=== PATIENT | female | born 1935 | race Caucasian/White ===

== ENCOUNTER 2017-09-13 10:17 | Inpatient (IN) | payer OTHER, MEDICARE ==
[~2017-09-13] VITALS: Ht 165.1 cm; Wt 54.4 kg
[~2017-09-13 10:17] MED LIST: CALTRATE 600 +1 EACH PO; CLONAZEPAM0.5 MG PO; CULTURELLE10 Billion PO; DEPAKOTE250 MG PO; FUROSEMIDE20 MG PO; LOVENOX40 MG/0.1 SC; MASON NATURAL1200 MG PO; METROGEL TOP; NADOLOL20 MG PO; OXYCODONE HCL5 M1 PO; PRILOSEC40 MG PO; REFRESH CLASSI1 EACH IO; RESTASIS 0.4 M0.4 ML OPH; SYNTHROID0.05 MG PO; TRICOR160 MG PO; TYLENOL325 M1 PO; VITAB121000 PO; VITAMIN D32000 I1 PO; ZADITOR 5 ML5 ML OPH; ZYRTEC ALLERGY10 MG PO
--- NOTE | 2017-09-13 10:31 | ED DYSPNEA/ASTHMA COMPLAINT ---
History of Present Illness General Chief Complaint: Dyspnea (COPD, CHF, Other) Stated Complaint: BIBA COUGH, FEVER X 2 WEEKS Source: patient, family Exam Limitations: language barrier Vital Signs & Intake/Output Vital Signs & Intake/Output Vital Signs Date Time Temp Pulse Resp B/P B/P Pulse O2 O2 Flow FiO2 Mean Ox Delivery Rate 09/13 1240 100.9 09/13 1233 97.4 88 18 163/72 99 Nasal 4.0L Cannula 09/13 1108 100.9 73 20 180/78 94 Nasal 3.0L Cannula 09/13 1031 92 Room Air 09/13 1031 77 18 136/61 92 Room Air Allergies Coded Allergies: codeine (VOMITING 07/10/16) Reconcile Medications Acetaminophen (Tylenol) 325 MG TABLET 650 MG PO Q6P PRN pain scale 1-3 Calcium Carbonate/Vitamin D3 (Caltrate 600 + D Tablet) 600 MG-800 TABLET 1 TAB PO DAILY SUPPLEMENT (Reported) CETIRIZINE HCL (Zyrtec) 10 MG CAPSULE 1 CAP PO DAILY ALLERGIES (Reported) Clonazepam 0.5 MG TABLET 1 TAB PO QHS SLEEP (Reported) Cyanocobalamin (Vitamin B-12) 1,000 MCG TABLET 1 TAB PO DAILY SUPPLEMENT ( Reported) Cyclosporine (Restasis 0.4 Ml) 0.05 % DROPERETTE 1 GTT OPH BID EYES (Reported ) Divalproex Sodium (Depakote) 250 MG TCP 1 TAB PO QHS MENTAL HEALTH (Reported) Enoxaparin Sodium (Lovenox) 40 MG/0.4 ML SYRINGE 40 MG SC DAILY dvt prophylaxis Fenofibrate (Tricor) 160 MG TAB 1 TAB PO QPM TRIGLYCERIDES (Reported) Furosemide 20 MG TABLET 1 TAB PO DAILY DIURETIC (Reported) Ketotifen Fumarate (Zaditor 5 Ml) 0.025 % (0.035 %) DROPS 1 GTT OPH PRN ALLERGIES-EYES (Reported) Lactobacillus Rhamnosus GG ([employer]) 15 BILLION CELL CAP.SPRINK 1 CAP PO DAILY PROBIOTIC (Reported) Levothyroxine Sodium (Synthroid) 0.05 MG TAB 0.05 MG PO DAILY AC THYROID ( Reported) Metronidazole (Metrogel 1% 60GM) 1 % GEL..GRAM. 1 PATI TOP PRN ROSACEA ( Reported) apply to affected area(s) Nadolol 20 MG TABLET 1 TAB PO DAILY BP (Reported) OMEGA-3 FATTY ACIDS/FISH OIL (Fish Oil 1,200 MG Softgel) 360 MG-1,200 MG CAPSULE 1 SGL PO QHS SUPPLEMENT (Reported) Omeprazole (Prilosec) 40 MG ECC 1 CAP PO DAILY AC GI (Reported) Oxycodone HCl 5 MG TABLET 5 MG PO Q6 PRN PAIN SCALE 4-6 (MODERATE) Polyvinyl Alcohol/Povidone/Pf (Refresh Classic Eye Drops) 1.4 %-0.6 % DROPERETTE 1 PATI IO DAILY PRN TEARS (Reported) Triage Nurses Notes Reviewed? yes Onset: Gradual Duration: constant Timing: recent history Severity: moderate HPI: Patient is a 82-year-old female who is primarily Faroese speaking only in which history is limited with a past medical history of hypertension and anxiety HYPERthyroidism bilateral leg edema arthritis who is brought in by ambulance for concerns of cough-[employer] 2 weeks. Patient has associated symptoms of chills shortness of breath headaches fever BODY, nasal congestion and discharge weakness Patient saw ENT and was given azithromycin patient is on her last day of medication and feels no better Patient does state approximate one month ago while having cerumen disimpaction by primary care doctor the provider did cut patient's right ear and since is noted intermittent bleeding since where patient has been using cotton ball in the right ear however she denies any pain complaining of intermittent 2 weeks of chest discomfort (Julio Cesar Arora) Past History Travel History Traveled to [place] past 21 day No Medical History Any Pertinent Medical History? 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 No (Julio Cesar Arora) Review of Systems Review of Systems Constitutional: Reports: see HPI, chills, fever, malaise, weakness. EENTM: Reports: see HPI, nasal congestion. Respiratory: Reports: see HPI, cough, short of breath. Cardiovascular: Reports: see HPI, chest pain. GI: Reports: see HPI. Genitourinary: Reports: no symptoms. Musculoskeletal: Reports: see HPI. Skin: Reports: no symptoms. Neurological/Psychological: Reports: see HPI, headache. Hematologic/Endocrine: Reports: no symptoms. Immunologic/Allergic: Reports: no symptoms. All Other Systems: Reviewed and Negative (Julio Cesar Arora) Physical Exam Physical Exam General Appearance: alert, comfortable, thin Head: atraumatic Eyes: Bilateral: normal appearance, PERRL, EOMI. Ears, Nose, Throat: normal pharynx, hearing grossly normal, nasal congestion Neck: normal inspection Respiratory: chest non-tender, no respiratory distress, crackles Cardiovascular: regular rate/rhythm Peripheral Pulses: 2+ radial (R) Gastrointestinal: normal bowel sounds, soft, non-tender Extremities: TRACE PITTING EDEMA Neurologic/Psych: no motor/sensory deficits, awake, alert, oriented x 3 Skin: intact, normal color, warm/dry Core Measures ACS in differential dx? Yes CVA/TIA Diagnosis No Sepsis Present: No Sepsis Focused Exam Completed? No (Julio Cesar Arora) Progress Differential Diagnosis: asthma, AMI, bronchitis, costochondritis, CHF, COPD, musculoskeletal pain, pericarditis, pulmonary embolism, pneumonia, pneumothorax, rib fracture, unstable angina Plan of Care: Orders Procedure Date/time Status Regular Diet 09/13 D Active Patient Data 09/13 1440 Active Patient Data 09/13 1434 Active Misc Message 09/13 1421 Active ED Holding Orders 09/13 1421 Active Admit to inpatient 09/13 1421 Active Vital Signs 09/13 1421 Active Code Status 09/13 1421 Active LACTIC ACID 09/13 1341 Active Add-on Test (ER Only) 09/13 1113 Active D-DIMER 09/13 1107 Complete DEPAKOTE LEVEL 09/13 1103 Complete B-TYPE NATRIURETIC PEP (BNP) 09/13 1103 Complete RAPID VIRAL INFLUENZA A 09/13 1041 Complete LOWER RESPIRATORY CULTURE 09/13 1041 Active BLOOD CULTURE 09/13 1041 Active TROPONIN LEVEL 09/13 1041 Complete LACTIC ACID 09/13 1041 Complete COMPREHENSIVE METABOLIC PANEL 09/13 1041 Complete CBC WITHOUT DIFFERENTIAL 09/13 1041 Complete EKG 09/13 1039 Active Current Medications Sig/Renee Start time Last Medication Dose Stop Time Status Admin Azithromycin 500 MG ONCE ONE 09/13 1415 AC (Zithromax) 09/13 1514 Sodium Chloride 250 ML (Normal Saline 0.9%) Laboratory Tests 09/13/17 1107: Ypj-P-Cknlscrwzxd Pept Cancelled 09/13/17 1103: Anion Gap 13, Estimated GFR > 60, BUN/Creatinine Ratio 18.6, Glucose 105 H, Lactic Acid 0.8, Calcium 9.2, Total Bilirubin 0.6, AST 49 H, ALT 35, Alkaline Phosphatase 108, Troponin I 0.02, Aqi-Z-Nkhozfydpfl Pept 630 H, Total Protein 7.2, Albumin 3.6, Globulin 3.6, Albumin/Globulin Ratio 1.0 L, D-Dimer High Sensitivty 518 H, CBC w Diff NO MAN DIFF REQ, RBC 4.26, MCV 84.9, MCH 28.3, RDW 14.8 H, MPV 7.5, Gran % 69.3, Lymphocytes % 21.0, Monocytes % 9.1, Eosinophils % 0.3, Basophils % 0.3, Absolute Granulocytes 8.2 H, Absolute Lymphocytes 2.5, Absolute Monocytes 1.1 H, Absolute Eosinophils 0, Absolute Basophils 0, PUBS MCHC 33.3, Valproic Acid 46.9 L Microbiology 09/13 1140 BLOOD: Blood Culture - RECD 09/13 1124 BLOOD: Blood Culture - RECD 09/13 1050 NASOPHARYN: Influenza Virus A & B Rapid Smear - COMP 09/13 1041 LOWER RESP: Respiratory Culture - ORD 09/13 1041 LOWER RESP: Gram Stain - ORD Initially patient was in no respiratory distress however does have crackles patient spiked a fever in the emergency room and has community acquired bilateral pneumonia patient will be admitted. Discussed admission with patient who agrees and has no questions Diagnostic Imaging: Viewed by Me: CT Scan. Radiology Impression: acute abnormality Initial ED EK BPM, RBBB Prior EKG: unchanged Comments: PATIENT: TAI ESTRADA PRESENT AGE: 82 PATIENT ACCOUNT NO: [id number] : 37 LOCATION: [facility] ORDERING PHYSICIAN: Julio Cesar DUARTE SERVICE DATE: 09/13/17-1202 EXAM TYPE: CAT - CTA CHEST-PULMONARY EMBOLISM EXAMINATION: CT ANGIOGRAM OF THE CHEST WITH AND WITHOUT CONTRAST (CT PULMONARY ANGIOGRAM FOR PE) CLINICAL INFORMATION: Chest pain. Shortness of breath. Elevated d-dimer. COMPARISON: Chest x-ray of 07/10/2016. Chest CT of 02/11/2015 and 01/30/2014. TECHNIQUE: Prior to contrast administration, noncontrast localization images were obtained. Subsequently, multidetector volumetric imaging was performed from the thoracic inlet to below the diaphragms following the administration of 95 mL Optiray 350 intravenous contrast. No contrast reaction reported. Sagittal, coronal, and MIP oblique sagittal reformatted images were obtained on the CT workstation, uploaded to PACS, and reviewed. DLP: 286.04 mGy-cm FINDINGS: QUALITY OF STUDY/CONTRAST BOLUS: Satisfactory. PULMONARY ARTERIES: No central or segmental pulmonary emboli. THORACIC AORTA: No aneurysm or dissection. LUNGS: A 4 mm nodule in the left upper lobe laterally (series 2 image 130) is stable since the previous CT of 01/30/2014. Cluster of tiny nodular densities in the left upper lobe and superior segment of the left lower lobe laterally (series 2 image 185). Bronchial thickening is noted in the bilateral lower lobes with ground-glass opacities at the left lung base and patchy and ground-glass opacities in the right lung base in the lower lobe. A 3 mm subpleural nodule in the right lower lobe posterolaterally (series 2 image 295), stable since previous CT of 01/30/2014. Bronchial thickening with tree-in-bud opacities is also noted in the posterior right upper lobe. PLEURA: No pleural effusion or pneumothorax. MEDIASTINUM: Normal heart size. No pericardial effusion. No evidence of hilar adenopathy. There is a mildly enlarged subcarinal lymph node measuring 1.5 cm in short axis, which is a new finding compared to last CT. No evidence of septal bowing or right heart strain. CHEST WALL/AXILLA: No axillary or internal mammary lymphadenopathy. OSSEOUS STRUCTURES: No acute or suspicious osseous abnormality. Multilevel mild degenerative changes in the spine. UPPER ABDOMEN: Unremarkable. No reflux of contrast into the hepatic veins to suggest elevated right heart pressures. IMPRESSION: 1. No evidence of pulmonary embolism. 2. Mildly prominent subcarinal lymph node measuring 1.5 cm in short axis is nonspecific however likely reactive given the new parenchymal findings of airway disease/infection and bronchopneumonia in the bilateral lower lobes and right upper lobe. New multiple tree-in-bud opacities in the left upper lobe representing small airway infection. 3. A few bilateral 3 mm nodules are stable since previous CT of 2013. VTE: Negative DICTATED BY: Tatum Bernal MD DATE/TIME DICTATED:09/13/171332 PATIENT: TAI ESTRADA PRESENT AGE: 82 PATIENT ACCOUNT NO: [id number] : 37 LOCATION: [facility] ORDERING PHYSICIAN: Julio Cesar DUARTE SERVICE DATE: 09/13/17 EXAM TYPE: US - US-EXT BILAT VENOUS DOPPLER EXAMINATION: US TRIPLEX OF LOWER EXTREMITIES, BILATERAL CLINICAL INFORMATION: Shortness of breath. COMPARISON: None. TECHNIQUE: Color-flow triplex imaging with spectral analysis and compression Doppler were performed on the lower extremities. FINDINGS: Respiratory variation, normal compression and augmented flow are noted throughout the lower extremities. The visualized common femoral vein, proximal greater saphenous vein, femoral vein, profunda femoral vein, popliteal vein and visualized mid calf venous segments show no evidence of deep venous thrombosis. There is no Patel's cyst. IMPRESSION: Normal triplex scan without evidence of deep venous thrombosis involving the bilateral lower extremities. DICTATED BY: Kenrick Sosa MD DATE/TIME DICTATED:09/13/17 (Julio Cesar Arora) Departure Departure Disposition: STILL A PATIENT Condition: Stable Clinical Impression Primary Impression: Pneumonia Referrals: Gilbert Bauman MD Departure Forms: Customer Survey General Discharge Information Admission Note Spoke With: Ysabel Jordan MD Documentation of Exam: Documentation of any treatments & extenuating circumstances including Concerns Regarding Discharge (functional status, medication knowledge or non-compliance, living conditions, etc.) that warrant an admission rather than observation: [ Patient requires IV antibiotics to pulmonary consultation IV fluid resuscitation repeat labs, outpatient treatment would be medically harmful due to failing azithromycin by mouth treatment prior to arrival and concerns of kidney required pneumonia with comorbidities] (Julio Cesar Arora) PA/BAGGER MEAT Co-Sign Statement Statement: ED Attending supervision documentation- [X] I saw and evaluated the patient. I have also reviewed all the pertinent lab results and diagnostic results. I agree with the findings and the plan of care as documented in the PA's/BAGGER MEAT's documentation. Patient presents for evaluation of worsening cough after being treated with antibiotics for pneumonia. Physical examination reveals a conversant patient with occasional loose cough but no respiratory distress on a nasal cannula. [] I have reviewed the ED Record and agree with the PA's/BAGGER MEAT's documentation. [] Additions or exceptions (if any) to the PAs/BAGGER MEAT's note and plan are summarized below: [] (Natalie JESUS,Merrill Gay) Critical Care Note Critical Care Note Critical Care Time: 30-74 min (Julio Cesar Arora)
[2017-09-13 11:15] LABS: ABSOLUTE BASOPHIL COUNT 0 /CUMM (0.0-0.2); ABSOLUTE EOSINOPHIL COUNT 0 /CUMM (0.0-0.7); ABSOLUTE GRANULOCYTE CT 8.2 /CUMM (1.4-6.5); ABSOLUTE LYMPH COUNT 2.5 /CUMM (1.2-3.4); ABSOLUTE MONOCYTE COUNT 1.1 /CUMM (0.10-0.60); BASOPHIL % 0.3 % (0.0-2.0); EOSINOPHIL % 0.3 % (0-5); GRANULOCYTE % 69.3 % (42.2-75.2); HEMATOCRIT 36.2 % (37-47); MEAN CORPUSCULAR HGB 28.3 PG (27.0-31.0); MEAN CORPUSCULAR HGB CONC 33.3 G/DL (33.0-37.0); MEAN CORPUSCULAR VOLUME 84.9 FL (81.0-99.0); MEAN PLATELET VOLUME 7.5 FL (7.4-10.4); PLATELET COUNT 305 /CUMM (130-400); RBC DISTRIBUTION WIDTH 14.8 % (11.5-14.5); RED BLOOD CELL CT 4.26 /CUMM (4.20-5.40); WHITE BLOOD CELL COUNT 11.9 /CUMM (4.8-10.8)
--- NOTE | 2017-09-13 13:49 | ULTRASOUND REPORT ---
EXAMINATION: US TRIPLEX OF LOWER EXTREMITIES, BILATERAL CLINICAL INFORMATION: Shortness of breath. COMPARISON: None. TECHNIQUE: Color-flow triplex imaging with spectral analysis and compression Doppler were performed on the lower extremities. FINDINGS: Respiratory variation, normal compression and augmented flow are noted throughout the lower extremities. The visualized common femoral vein, proximal greater saphenous vein, femoral vein, profunda femoral vein, popliteal vein and visualized mid calf venous segments show no evidence of deep venous thrombosis. There is no Patel's cyst. IMPRESSION: Normal triplex scan without evidence of deep venous thrombosis involving the bilateral lower extremities.
--- NOTE | 2017-09-13 14:09 | CT SCAN REPORT ---
EXAMINATION: CT ANGIOGRAM OF THE CHEST WITH AND WITHOUT CONTRAST (CT PULMONARY ANGIOGRAM FOR PE) CLINICAL INFORMATION: Chest pain. Shortness of breath. Elevated d-dimer. COMPARISON: Chest x-ray of 07/10/2016. Chest CT of 02/11/2015 and 01/30/2014. TECHNIQUE: Prior to contrast administration, noncontrast localization images were obtained. Subsequently, multidetector volumetric imaging was performed from the thoracic inlet to below the diaphragms following the administration of 95 mL Optiray 350 intravenous contrast. No contrast reaction reported. Sagittal, coronal, and MIP oblique sagittal reformatted images were obtained on the CT workstation, uploaded to PACS, and reviewed. DLP: 286.04 mGy-cm FINDINGS: QUALITY OF STUDY/CONTRAST BOLUS: Satisfactory. PULMONARY ARTERIES: No central or segmental pulmonary emboli. THORACIC AORTA: No aneurysm or dissection. LUNGS: A 4 mm nodule in the left upper lobe laterally (series 2 image 130) is stable since the previous CT of 01/30/2014. Cluster of tiny nodular densities in the left upper lobe and superior segment of the left lower lobe laterally (series 2 image 185). Bronchial thickening is noted in the bilateral lower lobes with ground-glass opacities at the left lung base and patchy and ground-glass opacities in the right lung base in the lower lobe. A 3 mm subpleural nodule in the right lower lobe posterolaterally (series 2 image 295), stable since previous CT of 01/30/2014. Bronchial thickening with tree-in-bud opacities is also noted in the posterior right upper lobe. PLEURA: No pleural effusion or pneumothorax. MEDIASTINUM: Normal heart size. No pericardial effusion. No evidence of hilar adenopathy. There is a mildly enlarged subcarinal lymph node measuring 1.5 cm in short axis, which is a new finding compared to last CT. No evidence of septal bowing or right heart strain. CHEST WALL/AXILLA: No axillary or internal mammary lymphadenopathy. OSSEOUS STRUCTURES: No acute or suspicious osseous abnormality. Multilevel mild degenerative changes in the spine. UPPER ABDOMEN: Unremarkable. No reflux of contrast into the hepatic veins to suggest elevated right heart pressures. IMPRESSION: 1. No evidence of pulmonary embolism. 2. Mildly prominent subcarinal lymph node measuring 1.5 cm in short axis is nonspecific however likely reactive given the new parenchymal findings of airway disease/infection and bronchopneumonia in the bilateral lower lobes and right upper lobe. New multiple tree-in-bud opacities in the left upper lobe representing small airway infection. 3. A few bilateral 3 mm nodules are stable since previous CT of 2013. VTE: Negative
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
[2017-09-13] MEDS ORDERED: DEPAKOTE ER250 M1 PO (18:30)
[2017-09-13] MEDS ORDERED: FENOFIBRATE160 M1 PO (18:31)
[2017-09-13] MEDS ORDERED: SYNTHROID50 MCG PO (18:31)
[2017-09-13] MEDS ORDERED: CLONAZEPAM0.5 M2 PO (18:31)
[2017-09-13] MEDS ORDERED: NADOLOL20 M1 PO (18:32)
[2017-09-13] MEDS ORDERED: ZYRTEC10 M3 PO (18:33)
[2017-09-13] MEDS ORDERED: METROGEL55 GM TOP (18:33)
[2017-09-13] MEDS ORDERED: ZADITOR5 ML OPH (18:34)
[2017-09-13] MEDS ORDERED: REFRESH TEARS15 ML OPH (18:35)
[2017-09-13] MEDS ORDERED: VITAMIN B-12500 MC2 PO (18:36)
[2017-09-13] MEDS ORDERED: PROBIOTIC1 EACH PO (18:36)
[2017-09-13] MEDS ORDERED: LASIX20 M1 PO (18:37)
[2017-09-13] MEDS ORDERED: ENSURE LIQUID237 ML PO (18:37)
[2017-09-13] MEDS ORDERED: CALCIUM 600 +1 EA13 PO (18:40)
[2017-09-13 20:45] VITALS: BP 120/60
[2017-09-14 07:01] VITALS: BP 120/60
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
[2017-09-14 08:19] LABS: ABSOLUTE BASOPHIL COUNT 0 /CUMM (0.0-0.2); ABSOLUTE EOSINOPHIL COUNT 0.1 /CUMM (0.0-0.7); ABSOLUTE MONOCYTE COUNT 0.8 /CUMM (0.10-0.60); GRANULOCYTE % 59.9 % (42.2-75.2); PLATELET COUNT 276 /CUMM (130-400)
[2017-09-14 09:04] LABS: ABSOLUTE GRANULOCYTE CT 4.9 /CUMM (1.4-6.5); ABSOLUTE LYMPH COUNT 2.4 /CUMM (1.2-3.4); BASOPHIL % 0.3 % (0.0-2.0); EOSINOPHIL % 1.3 % (0-5); HEMATOCRIT 31.3 % (37-47); MEAN CORPUSCULAR HGB 28.6 PG (27.0-31.0); MEAN CORPUSCULAR HGB CONC 33.4 G/DL (33.0-37.0); MEAN CORPUSCULAR VOLUME 85.7 FL (81.0-99.0); MEAN PLATELET VOLUME 7.8 FL (7.4-10.4); RBC DISTRIBUTION WIDTH 16.1 % (11.5-14.5); RED BLOOD CELL CT 3.65 /CUMM (4.20-5.40); WHITE BLOOD CELL COUNT 8.2 /CUMM (4.8-10.8)
--- NOTE | 2017-09-14 14:16 | Cons- Pulmonary ---
General Information and HPI Consulting Request Date of Consult: 09/14/17 Requested By: Gwendolyn Reason for Consult: Pneumonia History of Present Illness: Patient is 82-year-old nonsmoker with history of chronic cough admitted with cough of 2 weeks' duration productive of discolored sputum. sHe failed outpatient Zithromax. CAT scan of the chest shows multiple areas of tree-in-bud opacity and parenchymal opacity indicative bronchopneumonia. Sputum is growing gram-negative rods which appear to be Pseudomonas or Acinetobacter based on pulmonary cultures. Prior CT scans have shown evidence of mild bronchiectasis Allergies/Medications Allergies: Coded Allergies: banana (RASH/ITCHING 09/14/17) strawberry (RASH/ITCHING 09/14/17) codeine (VOMITING 07/10/16) lactose (STOMACH UPSET 09/14/17) Uncoded Allergies: "SPICES" (UNKNOWN 09/14/17) Home Med List: Calcium Carbonate/Vitamin D3 (Calcium 600 + Vit D3 Tablet) (Unknown Strength) TABLET (Unknown Dose) PO DAILY SUPPLEMENT (Reported) Carboxymethylcellulose Sodium (Refresh Tears) (Unknown Strength) DROPS ( Unknown Dose) OPH [id number] EYE(S) LUBRICANT (Reported) Cetirizine HCl (Zyrtec) 10 MG TABLET 1 TAB PO DAILY ALLERGIES (Reported) Clonazepam 0.5 MG TABLET 1 TAB PO QPM ANXIETY (Reported) Cyanocobalamin (Vitamin B-12) (Vitamin B-12) (Unknown Strength) TABLET ( Unknown Dose) PO DAILY SUPPLEMENT (Reported) Divalproex Sodium (Depakote ER) 250 MG TAB.ER.24H 2 TAB PO QPM UNKNOWN ( Reported) Fenofibrate 160 MG TABLET 1 TAB PO DAILY CHOLESTEROL/TRIGLYCERIDES (Reported) Furosemide (Lasix) 20 MG TABLET 1 TAB PO DAILY DIURETIC (Reported) Ketotifen Fumarate (Zaditor) (Unknown Strength) DROPS (Unknown Dose) OPH AD PRN ALLERGIES (Reported) Lactobacillus Acidophilus (Probiotic) (Unknown Strength) CAPSULE (Unknown Dose ) PO DAILY PROBIOTIC (Reported) Lactose-Reduced Food (Ensure Liquid) (Unknown Strength) LIQUID (Unknown Dose) PO DAILY NUTRITIONAL SUPPLEMENT (Reported) Levothyroxine Sodium (Synthroid) 50 MCG TABLET 1 TAB PO DAILY THYROID ( Reported) Metronidazole (Metrogel) 1 % GEL.W.PUMP 1 PATI TOP AD PRN ROSACEA (Reported) Nadolol 20 MG TABLET 1 TAB PO DAILY HEART/BP (Reported) Review of Systems Review of Systems Constitutional: Denies: chills, fever. Cardiovascular: Denies: chest pain. Respiratory: Reports: cough, sputum production. Denies: hemoptysis, wheezing. GI: Denies: abdominal pain, diarrhea, melena. 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 Home Who Do You Live With? child Services at Home: None Primary Language: Frisian Smoking Status: Never Smoked Functional Ability ADLs Independent: dressing, eating, toileting, bathing. Ambulation: cane Exam & Diagnostic Data Last 24 Hrs of Vital Signs/I&O Vital Signs Date Time Temp Pulse Resp B/P B/P Pulse O2 O2 Flow FiO2 Mean Ox Delivery Rate 09/14 1106 120/60 09/14 0800 Nasal 2.0L Cannula 09/14 0800 96 Nasal 2.0L Cannula 09/14 0701 97.4 52 20 120/60 96 Nasal 2.0L Cannula 09/14 0000 Nasal 2.0L Cannula 09/13 2221 Nasal 2.0L Cannula 09/13 2045 98.2 68 22 120/60 94 Nasal 2.0L Cannula 09/13 2030 Nasal 2.0L Cannula 09/13 1914 97.0 72 17 128/64 96 Nasal 3.0L Cannula 09/13 1745 96.7 67 19 122/60 99 Nasal 3.0L Cannula 09/13 1608 96.7 09/13 1530 96.7 72 20 157/75 99 Nasal 3.0L Cannula Intake & Output 09/14 1600 09/14 0800 09/14 0000 Intake Total 250 250 Output Total 400 550 Balance -150 -300 Intake, IV 10 10 Intake, Oral 240 240 Number 0 0 Bowel Movements Output, Urine 400 550 Patient 120 lb Weight Weight Reported by Patient Measurement Method Oxygen saturation 2 L 96% HEENT exam shows no adenopathy exam for chest shows scattered rhonchi bilaterally cardiac exam shows regular S1 and S2 without murmurs abdomen is soft nontender there's trace bilateral Last 48 Hrs of Labs/Heber: Laboratory Tests 09/14/17 0713: Anion Gap 11, Estimated GFR > 60, BUN/Creatinine Ratio 18.3, CBC w Diff NO MAN DIFF REQ, RBC 3.65 L, MCV 85.7, MCH 28.6, RDW 16.1 H, MPV 7.8, Gran % 59.9, Lymphocytes % 28.9, Monocytes % 9.6 H, Eosinophils % 1.3, Basophils % 0.3, Absolute Granulocytes 4.9, Absolute Lymphocytes 2.4, Absolute Monocytes 0.8 H, Absolute Eosinophils 0.1, Absolute Basophils 0, PUBS MCHC 33.4 09/13/17 1341: Lactic Acid Cancelled 09/13/17 1107: Psz-W-Adfohczveoe Pept Cancelled 09/13/17 1103: Anion Gap 13, Estimated GFR > 60, BUN/Creatinine Ratio 18.6, Glucose 105 H, Lactic Acid 0.8, Calcium 9.2, Total Bilirubin 0.6, AST 49 H, ALT 35, Alkaline Phosphatase 108, Troponin I 0.02, Nds-V-Cdqjezaxofo Pept 630 H, Total Protein 7.2, Albumin 3.6, Globulin 3.6, Albumin/Globulin Ratio 1.0 L, D-Dimer High Sensitivty 518 H, CBC w Diff NO MAN DIFF REQ, RBC 4.26, MCV 84.9, MCH 28.3, RDW 14.8 H, MPV 7.5, Gran % 69.3, Lymphocytes % 21.0, Monocytes % 9.1, Eosinophils % 0.3, Basophils % 0.3, Absolute Granulocytes 8.2 H, Absolute Lymphocytes 2.5, Absolute Monocytes 1.1 H, Absolute Eosinophils 0, Absolute Basophils 0, PUBS MCHC 33.3, Valproic Acid 46.9 L Microbiology 09/13 1050 NASOPHARYN: Influenza Virus A & B Rapid Smear - COMP Assessment/Plan Impression/Plan: 82-year-old woman who has had evidence of bronchiectasis in the past tree-in-bud opacities comes in with acute exacerbation of cough productive of purulent sputum with parenchymal findings on CAT scan indicative of infection sputum is growing gram-negative rods likely Pseudomonas or Citrobacter. Whether this is superinfection following treatment of Zithromax or represents failure of Zithromax because of poor coverage. Recommendations: Recommend begin empiric Fortaz pending final identification of gram-negative rods in the morning. Aggressive pulmonary toilet. Taper FiO2 his saturations allow. She will need follow-up CAT scan to ensure resolution and monitor of enlarged mediastinal lymph node Consult Acknowledgment - Thank you for your consult request.
[2017-09-14 14:21] VITALS: BP 114/60
[2017-09-14 22:00] VITALS: BP 126/60
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
[2017-09-15 07:11] VITALS: BP 136/64
[2017-09-15 08:16] LABS: ABSOLUTE BASOPHIL COUNT 0 /CUMM (0.0-0.2); ABSOLUTE EOSINOPHIL COUNT 0.1 /CUMM (0.0-0.7); ABSOLUTE GRANULOCYTE CT 3.3 /CUMM (1.4-6.5); ABSOLUTE LYMPH COUNT 2.1 /CUMM (1.2-3.4); ABSOLUTE MONOCYTE COUNT 0.6 /CUMM (0.10-0.60); BASOPHIL % 0.6 % (0.0-2.0); EOSINOPHIL % 1.9 % (0-5); GRANULOCYTE % 53.5 % (42.2-75.2); HEMATOCRIT 31.1 % (37-47); MEAN CORPUSCULAR HGB 28.8 PG (27.0-31.0); MEAN CORPUSCULAR HGB CONC 33.8 G/DL (33.0-37.0); MEAN CORPUSCULAR VOLUME 85.3 FL (81.0-99.0); MEAN PLATELET VOLUME 7.8 FL (7.4-10.4); PLATELET COUNT 305 /CUMM (130-400); RBC DISTRIBUTION WIDTH 15.2 % (11.5-14.5); RED BLOOD CELL CT 3.64 /CUMM (4.20-5.40); WHITE BLOOD CELL COUNT 6.1 /CUMM (4.8-10.8)
--- NOTE | 2017-09-15 08:53 | PN- Pulmonary ---
Subjective HPI/Critical Care Issues: The patient is awake and alert. She feels she is doing better overall. Objective Current Medications: Current Medications Sig/Renee Start time Last Medication Dose Route Stop Time Status Admin Acetaminophen 650 MG Q6P PRN 09/13 1615 AC PO Albuterol Sulfate 3 ML EVERY 4 HRS/AWAKE 09/14 0800 AC 09/15 INH 0847 Artificial Tears 2 GTT 4 TIMES/DAY 09/14 1527 AC 09/14 OPH 2105 Artificial Tears 2 GTT Q2P PRN 09/14 1430 CAN OPH Azithromycin 500 MG DAILY 09/14 1000 DC 09/14 Sodium Chloride 250 ML IV 1103 Ceftazidime 1,000 MG Q12H 09/14 1600 AC 09/15 IV 0407 Ceftriaxone Sodium 1,000 MG DAILY 09/14 1000 DC 09/14 IV 1106 Clonazepam 0.5 MG QPM 09/13 2200 AC 09/14 PO 09/20 2159 2027 Divalproex Sodium 500 MG QPM 09/13 2200 AC 09/14 PO 2027 Enoxaparin Sodium 40 MG 1700 09/13 1700 AC 09/14 SC 1644 Fenofibrate 145 MG DAILY 09/14 1000 AC 09/14 PO 1104 Furosemide 20 MG DAILY 09/14 1000 AC PO Guaifenesin 600 MG Q12 09/13 2200 AC 09/14 PO 2104 Ibuprofen 600 MG Q6P PRN 09/13 1615 AC 09/14 PO 2104 Levothyroxine Sodium 0.05 MG 0700 09/14 0700 AC 09/15 PO 0535 Nadolol 20 MG DAILY 09/14 1000 AC 09/14 PO 1106 Non-Formulary 0 SEE ADMIN CRITERIA 09/14 1345 DC Medication ANY Vital Signs & I&O Last 24 Hrs of Vitals and I&O: Vital Signs Date Time Temp Pulse Resp B/P B/P Pulse O2 O2 Flow FiO2 Mean Ox Delivery Rate 09/15 0756 Room Air 09/15 0711 97.9 57 18 136/64 96 Room Air 09/15 0000 Room Air 09/14 2200 97.9 63 20 126/60 93 Nasal 2.0L Cannula 09/14 1630 97 Nasal 2.0L Cannula 09/14 1421 97.2 61 20 114/60 96 Nasal 2.0L Cannula 09/14 1106 120/60 Intake & Output 09/15 1600 09/15 0800 09/15 0000 Intake Total 500 260 Output Total 400 Balance 500 -140 Intake, IV 20 20 Intake, Oral 480 240 Number 0 Bowel Movements Output, Urine 400 Impression/Plan Impression/Plan Impression/Plan: 82 year old female with evidence of gram negative pneumonia. CAT scan of the chest shows multiple areas of tree-in-bud opacity and parenchymal opacity indicative bronchopneumonia. Cultures are pending. Recommendations: * Follow up cultures. * Continue Ceftaz pending results. * Taper oxygen down if able. Keep sats > 92% at rest and > 88% with exertion. * Continue nebs/TRC. * Home meds as per primary team. * DVT prophylaxis at all times (on Lovenox).
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
[2017-09-15 14:52] VITALS: BP 150/63
[2017-09-15 14:56] LABS: ABSOLUTE BASOPHIL COUNT 0 /CUMM (0.0-0.2); ABSOLUTE EOSINOPHIL COUNT 0.1 /CUMM (0.0-0.7); ABSOLUTE GRANULOCYTE CT 3.7 /CUMM (1.4-6.5); ABSOLUTE LYMPH COUNT 1.7 /CUMM (1.2-3.4); ABSOLUTE MONOCYTE COUNT 0.6 /CUMM (0.10-0.60); BASOPHIL % 0.5 % (0.0-2.0); EOSINOPHIL % 1.6 % (0-5); GRANULOCYTE % 60.2 % (42.2-75.2); HEMATOCRIT 34.3 % (37-47); MEAN CORPUSCULAR HGB 28.9 PG (27.0-31.0); MEAN CORPUSCULAR HGB CONC 34.3 G/DL (33.0-37.0); MEAN CORPUSCULAR VOLUME 84.3 FL (81.0-99.0); PLATELET COUNT 375 /CUMM (130-400); RBC DISTRIBUTION WIDTH 15.4 % (11.5-14.5); RED BLOOD CELL CT 4.07 /CUMM (4.20-5.40); WHITE BLOOD CELL COUNT 6.1 /CUMM (4.8-10.8)
[2017-09-15 21:41] VITALS: BP 130/70
[2017-09-16 07:06] VITALS: BP 122/64
[2017-09-16 08:25] LABS: ABSOLUTE BASOPHIL COUNT 0 /CUMM (0.0-0.2); ABSOLUTE EOSINOPHIL COUNT 0.2 /CUMM (0.0-0.7); ABSOLUTE GRANULOCYTE CT 3.4 /CUMM (1.4-6.5); ABSOLUTE LYMPH COUNT 2.4 /CUMM (1.2-3.4); ABSOLUTE MONOCYTE COUNT 0.7 /CUMM (0.10-0.60); BASOPHIL % 0.4 % (0.0-2.0); EOSINOPHIL % 2.4 % (0-5); GRANULOCYTE % 50.8 % (42.2-75.2); HEMATOCRIT 32.5 % (37-47); MEAN CORPUSCULAR HGB 28.6 PG (27.0-31.0); MEAN CORPUSCULAR HGB CONC 33.7 G/DL (33.0-37.0); MEAN CORPUSCULAR VOLUME 84.9 FL (81.0-99.0); MEAN PLATELET VOLUME 7.5 FL (7.4-10.4); PLATELET COUNT 376 /CUMM (130-400); RBC DISTRIBUTION WIDTH 15.6 % (11.5-14.5); RED BLOOD CELL CT 3.83 /CUMM (4.20-5.40); WHITE BLOOD CELL COUNT 6.8 /CUMM (4.8-10.8)
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
[2017-09-16 13:37] VITALS: BP 110/50
[2017-09-16 23:27] VITALS: BP 110/60
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
[2017-09-17 07:05] VITALS: BP 114/58
--- NOTE | 2017-09-17 10:05 | PN- Pulmonary ---
Subjective HPI/Critical Care Issues: 82 year old female with evidence of gram negative pneumonia. CAT scan of the chest shows multiple areas of tree-in-bud opacity and parenchymal opacity indicative bronchopneumonia. Cultures are pending. Objective Current Medications: Medications reviewed Vital Signs & I&O Last 24 Hrs of Vitals and I&O: Vital signs reviewed. Impression/Plan Impression/Plan Impression/Plan: 82 year old female with evidence of gram negative pneumonia. CAT scan of the chest shows multiple areas of tree-in-bud opacitities and parenchymal opacity indicative bronchopneumonia. She also has a 1.5 cm prominent subcarinal lymph node that will also need follow-up. Cultures are positive for Pseudomonas. Recommendations: * Follow up cultures - positive for pseudomonas. * Continue Ceftaz. * Taper oxygen down if able. Keep sats > 92% at rest and > 88% with exertion. * Continue nebs/TRC. * Home meds as per primary team. * DVT prophylaxis at all times (on Lovenox). * The patient will require follow-up CAT scan in as an outpatient after resolution of her symptoms. * Consider a follow-up chest x-ray to ensure no evidence of pleural effusions. * PT/out of bed to chair. * Continue all supportive care.
--- NOTE | 2017-09-17 14:16 | RADIOLOGY REPORT ---
EXAMINATION: XR PORTABLE CHEST CLINICAL INFORMATION: Pneumonia COMPARISON: 09/13/2017 CT scan of chest TECHNIQUE: Portable AP view of the chest was obtained. FINDINGS: The cardiomediastinal silhouette is normal. The pulmonary vascularity is within normal limits. There is interstitial opacity in the right upper lobe which correlates with the comparison CT finding and could represent pneumonia. There is also an area of pulmonary opacity in the right lower lobe, adjacent to the right costophrenic angle which considering the differences in techniques, is fairly similar to the comparison CT scan. Airspace disease seen in the left lower lobe on the comparison CT scan is not conspicuous on current exam. No pleural effusion. No pneumothorax. IMPRESSION: Multilobar pneumonia involving the right upper lobe and right lower lobe.
[2017-09-17 15:16] VITALS: BP 110/56
[2017-09-17 22:02] VITALS: BP 136/58
[2017-09-18 06:34] VITALS: BP 132/56
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
--- NOTE | 2017-09-18 08:17 | PN- Pulmonary ---
Subjective HPI/Critical Care Issues: Patient feels better but still has productive cough Objective Current Medications: Current Medications Sig/Renee Start time Last Medication Dose Route Stop Time Status Admin Acetaminophen 650 MG Q6P PRN 09/13 1615 AC PO Albuterol Sulfate 3 ML EVERY 4 HRS/AWAKE 09/14 0800 AC 09/17 INH 2048 Artificial Tears 2 GTT 4 TIMES/DAY 09/14 1527 AC 09/17 OPH 2042 Ceftazidime 1,000 MG Q12H 09/14 1600 DC 09/17 IV 0314 Ciprofloxacin 250 MG BID 09/17 1221 AC 09/17 PO 09/21 1220 2041 Clonazepam 0.5 MG QPM 09/13 2200 AC 09/17 PO 09/20 2159 204 Divalproex Sodium 500 MG QPM 09/13 2200 AC 09/17 PO 2041 Enoxaparin Sodium 40 MG 1700 09/13 1700 AC 09/17 SC 1551 Fenofibrate 145 MG DAILY 09/14 1000 AC 09/17 PO 0913 Furosemide 20 MG DAILY 09/14 1000 AC 09/17 PO 0913 Guaifenesin 10 ML Q6P PRN 09/18 0115 AC 09/18 PO 0117 Guaifenesin 600 MG Q12 09/13 2200 AC 09/17 PO 2041 Ibuprofen 600 MG Q6P PRN 09/13 1615 AC 09/15 PO 0934 Levothyroxine Sodium 0.05 MG 0700 09/14 0700 AC 09/18 PO 0526 Nadolol 20 MG DAILY 09/14 1000 AC 09/17 PO 0913 Polyethylene Glycol 17 GM DAILY 09/16 205 AC 09/17 PO 0913 Senna 187 MG AT BEDTIME 09/16 220 AC 09/17 PO 2041 Vital Signs & I&O Last 24 Hrs of Vitals and I&O: Vital Signs Date Time Temp Pulse Resp B/P B/P Pulse O2 O2 Flow FiO2 Mean Ox Delivery Rate 09/18 0634 98.0 70 20 132/56 95 09/18 0000 Room Air 09/17 2201 97.8 68 20 136/58 93 Room Air 09/17 2051 93 Room Air 09/17 1542 Room Air 09/17 1516 98.6 63 20 110/56 94 Room Air 09/17 0913 114/60 09/17 0835 92 Room Air Room Air Intake & Output 09/18 1600 09/18 0800 09/18 0000 Intake Total 240 700 Output Total Balance 240 700 Intake, Oral 240 700 Oxygen saturation 95% exam for chest shows clear lung ariza early rare rhonchi cardiac exam shows regular S1 and S2 without murmurs Impression/Plan Impression/Plan Impression/Plan: 82-year-old woman who has had evidence of bronchiectasis in the past tree-in-bud opacities comes in with acute gram-negative kishore pseudomonal pneumonia. She is clinically improved now on room air and afebrile with normal white count. Recommendations: Complete course of antibiotics. Oral Cipro as outpatient. Patient will need follow-up CAT scan.
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
[2017-09-18 10:01] VITALS: BP 122/74
[2017-09-18] MEDS ORDERED: CIPRO500 M1 PO (12:04)
[2017-09-18] MEDS ORDERED: GUAIFENESIN ER600 MG PO (12:05)
[2017-09-18] MEDS ORDERED: SENNA-TIME S T1 EACH PO (12:05)
[2017-09-18 12:16] LABS: ABSOLUTE BASOPHIL COUNT 0 /CUMM (0.0-0.2); ABSOLUTE EOSINOPHIL COUNT 0.1 /CUMM (0.0-0.7); ABSOLUTE GRANULOCYTE CT 3.1 /CUMM (1.4-6.5); ABSOLUTE LYMPH COUNT 2.3 /CUMM (1.2-3.4); ABSOLUTE MONOCYTE COUNT 0.8 /CUMM (0.10-0.60); BASOPHIL % 0.3 % (0.0-2.0); EOSINOPHIL % 1.3 % (0-5); GRANULOCYTE % 49.3 % (42.2-75.2); HEMATOCRIT 35.8 % (37-47); MEAN CORPUSCULAR HGB 28.5 PG (27.0-31.0); MEAN CORPUSCULAR HGB CONC 33.4 G/DL (33.0-37.0); MEAN CORPUSCULAR VOLUME 85.2 FL (81.0-99.0); MEAN PLATELET VOLUME 7.7 FL (7.4-10.4); PLATELET COUNT 463 /CUMM (130-400); RBC DISTRIBUTION WIDTH 15.4 % (11.5-14.5); WHITE BLOOD CELL COUNT 6.2 /CUMM (4.8-10.8)
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
--- NOTE | 2017-09-19 14:25 | Patient Discharge Instructions ---
Discharge Instructions General Discharge Information You were seen/treated for: Gram-negative pneumonia Special Instructions: 1please follow-up with your PCP in 1 week of discharge 2please follow-up with psychiatry in 1 week of discharge Diet Continue normal diet: Yes Activity Full Activity/No Limits: Yes Acute Coronary Syndrome Inclusion Criteria At DC or during hospital stay patient has or had the following: ACS DIAGNOSIS No Discharge Core Measures Meds if any: Prescribed or Continued at Discharge Meds if any: NOT Prescribed or Continued at Discharge Congestive Heart Failure Inclusion Criteria At DC or during hospital stay patient has or had the following: CHF DIAGNOSIS No Discharge Core Measures Meds if any: Prescribed or Continued at Discharge Meds if any: NOT Prescribed or Continued at Discharge Cerebrovascular accident Inclusion Criteria At DC or during hospital stay patient has or had the following: CVA/TIA Diagnosis No Discharge Core Measures Meds if any: Prescribed or Continued at Discharge Meds if any: NOT Prescribed or Continued at Discharge Venous thromboembolism Inclusion Criteria VTE Diagnosis No VTE Type NONE VTE Confirmed by (Test) NONE Discharge Core Measures - Per Current guidelines, there needs to be overlap - treatment for the first 5 days of Warfarin therapy. - If discharged on Warfarin prior to 5 days of - overlap therapy, the patient will need to be - assessed for post discharge needs including - *Post discharge parental anticoagulation - *Warfarin and/or parental anticoagulation education - *Follow up date to check INR post discharge At least 5 days overlap therapy as Inpatient No Meds if any: Prescribed or Continued at Discharge Note: Overlap Therapy is Warfarin and Anticoagulant Meds if any: NOT Prescribed or Continued at Discharge
== END 2017-09-18 14:20 | disposition home health service (06) | DRG 178 ==
LOC: ERH 10:17 → 2NB 14:21 → ERHI 14:21 → 2NB 14:21 → ENRESERV 19:20 → 2NB 20:20
PROVIDERS: Internal Medicine Hematology & Oncology; Physician Assistant; Student in an Organized Health Care Education/Training Program
DX: J15.1 Pneumonia due to Pseudomonas (principal); R45.851 Suicidal ideations; L89.312 Pressure ulcer of right buttock, stage 2; I45.10 Unspecified right bundle-branch block; T74.11XA Adult physical abuse, confirmed, initial encounter; I10 Essential (primary) hypertension; F41.9 Anxiety disorder, unspecified; E03.9 Hypothyroidism, unspecified; M19.90 Unspecified osteoarthritis, unspecified site; F32.9 Major depressive disorder, single episode, unspecified; E78.5 Hyperlipidemia, unspecified; R41.0 Disorientation, unspecified; R59.1 Generalized enlarged lymph nodes
CPT/HCPCS: 2NBSP; 36415; 71045; 82436; 87040; 87070; 87804; 87804-59; 93005; 93010; 93970; 96374; 97116-GO; 97161-GP; 97530-GO; 99233; 99291; J0131; J0456; J0696; J0713; J1650; J7040